=== PATIENT | female | born 1990 | race Caucasian/White ===

== ENCOUNTER 2017-07-11 23:50 | Observation (INO) | payer SELFPAY ==
[~2017-07-11] VITALS: Ht 165.1 cm; Wt 105.2 kg
[2017-07-12 00:33] LABS: APPEARANCE,URINE CLOUDY (CLEAR); BILIRUBIN,URINE NEGATIVE (NEGATIVE); GLUCOSE, URINE (UA) NEGATIVE (NEGATIVE); KETONES,URINE NEGATIVE (NEGATIVE); LEUKOCYTE ESTERASE ,URINE LARGE (NEGATIVE); NITRATE,URINE NEGATIVE (NEGATIVE); OCCULT BLOOD,URINE NEGATIVE (NEGATIVE); PH,URINE 6.5 (5.0-8.0); PROTEIN,URINE NEGATIVE (NEGATIVE)
[2017-07-12 00:52] VITALS: BP 124/76
[2017-07-12 00:54] LABS: BACTERIA,URINE Few /HPF (None Seen); RBC,URINE 0-2 /HPF (0-2); SQUAMOUS EPITHELIAL CELL,UR Few /LPF (None Seen)
== END 2017-07-12 01:05 | disposition home or self-care (01) ==
LOC: 4S 23:50
PROVIDERS: ADMIT Obstetrics & Gynecology; ATTEND Obstetrics & Gynecology
DX: O62.9 Abnormality of forces of labor, unspecified (principal); O48.0 Post-term pregnancy; O26.893 Other specified pregnancy related conditions, third trimester; R10.9 Unspecified abdominal pain; Z3A.41 41 weeks gestation of pregnancy
CPT/HCPCS: 59025; 80307 ×8; 81001; 87077; 87086; G0378 ×2

== ENCOUNTER 2017-07-23 06:32 | Inpatient (IN) | payer SELFPAY ==
[~2017-07-23] VITALS: Ht 165.1 cm; Wt 106.1 kg
[2017-08-19 00:16] VITALS: BP 136/76
[2017-08-19] MEDS ORDERED: RINGERS SOLUTION,LACTATED 1,000 ML IV SCH ×2 (01:12→02:37)
[2017-08-19] MEDS ORDERED: RINGERS SOLUTION,LACTATED 1,000 ML IV ONE (01:15)
[2017-08-19] MEDS ORDERED: RINGERS SOLUTION,LACTATED 1,000 ML IV PRN (02:37)
[2017-08-19] MEDS ORDERED: OXYTOCIN 30 UNITS/LACT RINGERS 500 ML IV ONE (02:37)
[2017-08-19] MEDS ORDERED: METHYLERGONOVINE MALEATE 0.2 MG/ML VIAL IM PRN (02:45)
[2017-08-19] MEDS ORDERED: CITRIC ACID/SODIUM CITRATE 30 ML SOLUTION UDCUP PO PRN (02:45)
[2017-08-19] MEDS ORDERED: METOCLOPRAMIDE HCL 5 MG/ML 2 ML VIAL IVP PRN (02:45)
[2017-08-19] MEDS ORDERED: FentaNYL CITRATE-PF 100 MCG/2 ML VIAL IVP PRN (02:45)
[2017-08-19] MEDS ORDERED: AMPICILLIN SODIUM 2 GM/NS 100 ML IV ONE (03:00)
[2017-08-19 03:13] LABS: BASOPHILS % (AUTO) 0.3 % (0.0-2.0); EOSINOPHILS % (AUTO) 0.4 % (1.0-6.0); LYMPHOCYTES # (AUTO) 3.2 K/uL (1.0-4.8); MEAN CORPUSCULAR HEMOGLOBIN 20.9 pg (26.0-34.0); MEAN CORPUSCULAR VOLUME 68 fL (80-100); MONOCYTES # (AUTO) 0.4 K/uL (0.1-1.0); MONOCYTES % (AUTO) 3.7 % (2.0-9.0); NEUTROPHILS % (AUTO) 68.6 % (40.0-70.0); PLATELET COUNT (AUTO)-OB 249 K/uL (150-450); RED BLOOD CELL COUNT(AUTO) 3.84 MIL/uL (4.00-5.20); RED CELL DISTRIBUTION WIDTH 18.7 % (11.5-14.5)
[2017-08-19] MEDS ORDERED: INFLUENZA VIRUS VACCINE QVS 2017-18 (3YR+)/PF 60 MCG/0.5 ML SYRINGE IM ONE (04:00)
[2017-08-19] MEDS ORDERED: OXYTOCIN 30 UNITS/LACT RINGERS 500 ML IV PRN (05:00)
[2017-08-19 05:30] LABS: RUBELLA SCREEN (IGG) IMMUNE (IMMUNE)
[2017-08-19] MEDS: AMPICILLIN SODIUM 1 GM/NS 50 ML IV SCH ×2 (06:39→11:24)
[2017-08-19] MEDS ORDERED: FentaNYL CITRATE-PF 100 MCG/2 ML VIAL ONE (07:28)
[2017-08-19] MEDS ORDERED: ROPIVACAINE HCL 0.2% 100 ML ED ONE (07:28)
[2017-08-19] MEDS ORDERED: ROPIVACAINE HCL 0.2% ED PRN (08:55)
[2017-08-19] MEDS ORDERED: FENTANYL CITRATE ED PRN (08:55)
[2017-08-19] MEDS ORDERED: NALBUPHINE HCL 10 MG/ML VIAL IVP PRN ×2 (09:00)
[2017-08-19] MEDS ORDERED: DiphenhydrAMINE HCL 50 MG/ML VIAL IVP PRN (09:00)
[2017-08-19] MEDS ORDERED: PROMETHAZINE HCL 12.5 MG in SODIUM CHLORIDE 0.9% 50 ML IV PRN (09:00)
[2017-08-19] MEDS ORDERED: ONDANSETRON HCL 4 MG/2 ML VIAL IVP PRN (09:00)
[2017-08-19] MEDS ORDERED: OXYTOCIN 20 UNITS/LACT RINGERS 1,000 ML IV ONE (13:38)
[2017-08-19] MEDS ORDERED: ACETAMINOPHEN/CODEINE 300-30 MG TABLET PO PRN (14:45)
[2017-08-19] MEDS ORDERED: BENZOCAINE 20%/MENTHOL 56 GM SPRAY CANISTER TP PRN (14:45)
[2017-08-19] MEDS ORDERED: GLYCERIN/WITCH HAZEL LEAF 40 PADS JAR TP PRN (14:45)
[2017-08-19] MEDS ORDERED: MEASLES/MUMPS/RUBELLA VACCINE, LIVE 0.5 ML/VIAL SQ ONE (14:45)
[2017-08-19] MEDS ORDERED: OXYTOCIN 20 UNITS/LACT RINGERS 1,000 ML IV SCH (14:45)
[2017-08-19] MEDS ORDERED: LANOLIN 7 GM OINTMENT TP PRN (14:45)
[2017-08-19] MEDS ORDERED: SENNA/DOCUSATE SODIUM 187-50 MG TABLET PO PRN (14:45)
[2017-08-19] MEDS: IBUPROFEN 600 MG TABLET PO PRN (14:55)
[2017-08-19] MEDS: MAGNESIUM HYDROXIDE SUSPENSION 30 ML UDCUP PO PRN (20:25)
[2017-08-19] MEDS ORDERED: PHENYLEPHRINE HCL 10 MG/ML VIAL IVP ONE (22:05)
[2017-08-19] MEDS ORDERED: EPHEDrine SULFATE 50 MG/ML VIAL IM ONE (22:05)
[2017-08-20] MEDS: IBUPROFEN 600 MG TABLET PO PRN ×2 (00:05→07:39)
[2017-08-20 06:09] LABS: BASOPHILS % (AUTO) 0.3 % (0.0-2.0); MEAN CORPUSCULAR HEMOGLOBIN 21.5 pg (26.0-34.0)
[2017-08-20 07:44] LABS: EOSINOPHILS % (AUTO) 0.9 % (1.0-6.0); LYMPHOCYTES # (AUTO) 2.6 K/uL (1.0-4.8); MEAN CORPUSCULAR HGB CONC 31.7 G/dL (31.0-37.0); MEAN CORPUSCULAR VOLUME 68 fL (80-100); MONOCYTES # (AUTO) 0.6 K/uL (0.1-1.0); MONOCYTES % (AUTO) 6.5 % (2.0-9.0); NEUTROPHILS # (AUTO) 5.9 K/uL (1.8-7.7); NEUTROPHILS % (AUTO) 64.3 % (40.0-70.0); PLATELET COUNT (AUTO)-OB 191 K/uL (150-450); RED BLOOD CELL COUNT(AUTO) 2.95 MIL/uL (4.00-5.20)
[2017-08-20 08:00] LABS: HEMOGLOBIN 6.3 g/dL (12.0-16.0)
[2017-08-20] MEDS: MAGNESIUM HYDROXIDE SUSPENSION 30 ML UDCUP PO PRN (09:13)
[2017-08-20] MEDS ORDERED: IBUP-2071 PO (12:49)
[2017-08-20] MEDS ORDERED: FERR-89 PO (12:58)
== END 2017-08-20 13:40 | disposition home or self-care (01) | DRG 775 ==
LOC: OBSVTOIN 08-18 23:00 → 4S 08-18 23:00
PROVIDERS: ADMIT Obstetrics & Gynecology; ATTEND Obstetrics & Gynecology
PROC: 10E0XZZ Delivery of Products of Conception, External Approach (ICD-10-PCS; principal; 2017-08-19)
PROC: 0UQGXZZ Repair Vagina, External Approach (ICD-10-PCS; 2017-08-19)
PROC: 3E0R3BZ Introduction of Anesthetic Agent into Spinal Canal, Percutaneous Approach (ICD-10-PCS; 2017-08-19)
PROC: 00HU33Z Insertion of Infusion Device into Spinal Canal, Percutaneous Approach (ICD-10-PCS; 2017-08-19)
DX: O71.4 Obstetric high vaginal laceration alone (principal); Z37.0 Single live birth; Z3A.38 38 weeks gestation of pregnancy
CPT/HCPCS: 76815; 80307; 86592; 86762; 86850; 86900; 86901; 87340; 90471; J0290; J2370; J2590; J2795; J3010; J3490; J7120

== ENCOUNTER 2019-06-03 16:10 | Inpatient (IN) | payer MEDICAID ==
[~2019-06-03] VITALS: Ht 165.1 cm; Wt 107.5 kg
[~2019-06-03 16:10] MED LIST: FERR-89 PO; IBUP-2071 PO
[2019-06-03] MEDS ORDERED: RINGERS SOLUTION,LACTATED 1,000 ML IV PRN (16:18)
[2019-06-03] MEDS ORDERED: OXYTOCIN 30 UNITS/LACT RINGERS 500 ML IV PRN (16:18)
[2019-06-03] MEDS ORDERED: OXYTOCIN 30 UNITS/LACT RINGERS 500 ML IV ONE ×2 (16:18→18:00)
[2019-06-03] MEDS: RINGERS SOLUTION,LACTATED 1,000 ML IV SCH ×2 (16:18→19:32)
[2019-06-03 16:28] VITALS: BP 112/59
[2019-06-03] MEDS ORDERED: CARBOPROST TROMETHAMINE 250 MCG/ML AMP IM PRN (16:30)
[2019-06-03] MEDS ORDERED: METOCLOPRAMIDE HCL 5 MG/ML 2 ML VIAL IVP PRN (16:30)
[2019-06-03] MEDS ORDERED: CITRIC ACID/SODIUM CITRATE 30 ML SOLUTION UDCUP PO PRN (16:30)
[2019-06-03] MEDS ORDERED: METHYLERGONOVINE MALEATE 0.2 MG/ML VIAL IM PRN ×2 (16:30→17:15)
[2019-06-03] MEDS ORDERED: FentaNYL CITRATE-PF 100 MCG/2 ML VIAL IVP PRN (16:30)
[2019-06-03] MEDS ORDERED: AMPICILLIN SODIUM 2 GM/NS 100 ML IV ONE (16:30)
[2019-06-03 17:10] LABS: BASOPHILS % (AUTO) 0.2 % (0.0-2.0); EOSINOPHILS % (AUTO) 0.4 % (1.0-6.0); HEMATOCRIT 22.1 % (36-46); LYMPHOCYTES # (AUTO) 1.9 K/uL (1.0-4.8); MEAN CORPUSCULAR HEMOGLOBIN 19.7 pg (26.0-34.0); MEAN CORPUSCULAR HGB CONC 30.5 G/dL (31.0-37.0); MEAN CORPUSCULAR VOLUME 65 fL (80-100); MONOCYTES # (AUTO) 0.4 K/uL (0.1-1.0); MONOCYTES % (AUTO) 3.9 % (2.0-9.0); NEUTROPHILS # (AUTO) 8.8 K/uL (1.8-7.7); NEUTROPHILS % (AUTO) 78.5 % (40.0-70.0); PLATELET COUNT (AUTO)-OB 298 K/uL (150-450); RED BLOOD CELL COUNT(AUTO) 3.41 MIL/uL (4.00-5.20)
[2019-06-03 17:13] LABS: HEMOGLOBIN 6.7 g/dL (12.0-16.0)
[2019-06-03] MEDS ORDERED: DiphenhydrAMINE HCL 25 MG CAPSULE PO ONE (17:15)
[2019-06-03] MEDS ORDERED: FUROSEMIDE 40 MG/4 ML VIAL IVP ONE ×2 (17:15)
[2019-06-03] MEDS ORDERED: FUROSEMIDE 20 MG/2 ML VIAL IVP ONE ×2 (17:15)
[2019-06-03] MEDS ORDERED: ACETAMINOPHEN 325 MG TABLET PO ONE (17:15)
[2019-06-03] MEDS ORDERED: DiphenhydrAMINE HCL 50 MG/ML VIAL IVP ONE (17:15)
[2019-06-03 17:21] LABS: ALANINE AMINOTRANSFERASE 13 U/L (12-78); ALBUMIN 2.5 g/dL (3.4-5.0); ALKALINE PHOSPHATASE 193 U/L (46-116); ANION GAP 11 mmol/L (8-16); ASPARTATE AMINOTRANSFERASE 11 U/L (15-37); BILIRUBIN,TOTAL 0.3 mg/dL (0.1-1.0); CALCIUM, TOTAL 7.8 mg/dL (8.8-10.5); CARBON DIOXIDE 20 mmol/L (22-29); CHLORIDE 105 mmol/L (98-107); CREATININE 0.83 mg/dL (0.60-1.30); GLOMERULAR FILTR. RATE CALC > 60 mL/min (>60); GLUCOSE,RANDOM 87 mg/dL (70-110); POTASSIUM 3.9 mmol/L (3.5-5.1); SODIUM SERUM 136 mmol/L (136-145); TOTAL PROTEIN, SERUM 7.4 g/dL (6.4-8.2); UREA NITROGEN, BLOOD 10 mg/dL (7-18)
[2019-06-03] MEDS ORDERED: BENZOCAINE 20%/MENTHOL 56 GM SPRAY CANISTER TP PRN (18:00)
[2019-06-03] MEDS ORDERED: GLYCERIN/WITCH HAZEL LEAF 40 PADS JAR TP PRN (18:00)
[2019-06-03] MEDS ORDERED: LIDOCAINE/PF 1% 30 ML VIAL INJ PRN (18:00)
[2019-06-03] MEDS ORDERED: LANOLIN 7 GM OINTMENT TP PRN (18:00)
[2019-06-03] MEDS: OxyCODONE HCL/ACETAMINOPHEN 5-325 MG TABLET PO PRN (19:17)
[2019-06-03] MEDS: SOD FERRIC GLUC COMPLX/SUCROSE 125 MG in SODIUM CHLORIDE 0.9% 100 ML IV SCH (19:31)
[2019-06-03] MEDS ORDERED: OXYGEN THERAPY IH SCH (20:00)
[2019-06-03] MEDS ORDERED: AMPICILLIN SODIUM 1 GM/NS 50 ML IV SCH (20:30)
[2019-06-04 00:04] LABS: RUBELLA SCREEN (IGG) IMMUNE (IMMUNE)
[2019-06-04] MEDS: IBUPROFEN 800 MG TABLET PO PRN (00:35)
[2019-06-04 05:53] LABS: BASOPHILS % (AUTO) 0.3 % (0.0-2.0); EOSINOPHILS % (AUTO) 0.4 % (1.0-6.0); LYMPHOCYTES # (AUTO) 2.3 K/uL (1.0-4.8); LYMPHOCYTES % (AUTO) 19.7 % (22.0-44.0); MEAN CORPUSCULAR HEMOGLOBIN 19.7 pg (26.0-34.0); MEAN CORPUSCULAR HGB CONC 30.3 G/dL (31.0-37.0); MEAN CORPUSCULAR VOLUME 65 fL (80-100); MONOCYTES # (AUTO) 0.7 K/uL (0.1-1.0); MONOCYTES % (AUTO) 6.3 % (2.0-9.0); NEUTROPHILS # (AUTO) 8.6 K/uL (1.8-7.7); NEUTROPHILS % (AUTO) 73.3 % (40.0-70.0); PLATELET COUNT (AUTO)-OB 227 K/uL (150-450); RED BLOOD CELL COUNT(AUTO) 2.71 MIL/uL (4.00-5.20); RED CELL DISTRIBUTION WIDTH 19.9 % (11.5-14.5)
[2019-06-04 06:25] LABS: HEMATOCRIT 17.6 % (36-46); HEMOGLOBIN 5.3 g/dL (12.0-16.0)
[2019-06-04] MEDS: OxyCODONE HCL/ACETAMINOPHEN 5-325 MG TABLET PO PRN ×3 (08:06→18:45)
[2019-06-04] MEDS ORDERED: DiphenhydrAMINE HCL 50 MG/ML VIAL IVP PRN (08:45)
[2019-06-04] MEDS ORDERED: SODIUM CHLORIDE 0.9% 1,000 ML ONE (10:25)
[2019-06-04] MEDS ORDERED: SODIUM CHLORIDE 0.9% 1,000 ML IV ONE (10:30)
[2019-06-04] MEDS: RINGERS SOLUTION,LACTATED 1,000 ML IV SCH (16:24)
[2019-06-04] MEDS: SOD FERRIC GLUC COMPLX/SUCROSE 125 MG in SODIUM CHLORIDE 0.9% 100 ML IV SCH (19:42)
[2019-06-04 20:26] LABS: BASOPHILS % (AUTO) 0.3 % (0.0-2.0); EOSINOPHILS % (AUTO) 1.7 % (1.0-6.0); LYMPHOCYTES # (AUTO) 2.4 K/uL (1.0-4.8); LYMPHOCYTES % (AUTO) 24.5 % (22.0-44.0); MEAN CORPUSCULAR HEMOGLOBIN 21.3 pg (26.0-34.0); MEAN CORPUSCULAR HGB CONC 31.3 G/dL (31.0-37.0); MEAN CORPUSCULAR VOLUME 68 fL (80-100); MONOCYTES # (AUTO) 0.6 K/uL (0.1-1.0); MONOCYTES % (AUTO) 5.5 % (2.0-9.0); NEUTROPHILS # (AUTO) 6.8 K/uL (1.8-7.7); PLATELET COUNT (AUTO)-OB 231 K/uL (150-450); RED BLOOD CELL COUNT(AUTO) 2.97 MIL/uL (4.00-5.20); RED CELL DISTRIBUTION WIDTH 23.3 % (11.5-14.5)
[2019-06-04 20:29] LABS: HEMOGLOBIN 6.3 g/dL (12.0-16.0)
[2019-06-04 20:30] LABS: HEMATOCRIT 20.2 % (36-46)
[2019-06-04] MEDS ORDERED: INFLUENZA VIRUS VACCINE QVS 2019-20 (3YR+)/PF 60 MCG/0.5 ML SYRINGE IM ONE (20:30)
[2019-06-04] MEDS: MAGNESIUM HYDROXIDE SUSPENSION 30 ML UDCUP PO PRN (21:02)
[2019-06-05] MEDS: OxyCODONE HCL/ACETAMINOPHEN 5-325 MG TABLET PO PRN ×2 (04:43→08:44)
[2019-06-05 05:53] LABS: BASOPHILS % (AUTO) 0.4 % (0.0-2.0); LYMPHOCYTES # (AUTO) 2.3 K/uL (1.0-4.8); LYMPHOCYTES % (AUTO) 23.1 % (22.0-44.0); MEAN CORPUSCULAR HEMOGLOBIN 21.7 pg (26.0-34.0); MEAN CORPUSCULAR HGB CONC 31.9 G/dL (31.0-37.0); MEAN CORPUSCULAR VOLUME 68 fL (80-100); MONOCYTES # (AUTO) 0.5 K/uL (0.1-1.0); MONOCYTES % (AUTO) 4.6 % (2.0-9.0); NEUTROPHILS # (AUTO) 6.9 K/uL (1.8-7.7); NEUTROPHILS % (AUTO) 69.9 % (40.0-70.0); PLATELET COUNT (AUTO)-OB 228 K/uL (150-450); RED BLOOD CELL COUNT(AUTO) 3.03 MIL/uL (4.00-5.20); RED CELL DISTRIBUTION WIDTH 22.8 % (11.5-14.5)
[2019-06-05 06:07] LABS: HEMATOCRIT 20.6 % (36-46); HEMOGLOBIN 6.6 g/dL (12.0-16.0)
[2019-06-05] MEDS: IBUPROFEN 800 MG TABLET PO PRN (10:08)
[2019-06-05] MEDS: MAGNESIUM HYDROXIDE SUSPENSION 30 ML UDCUP PO PRN (15:04)
[2019-06-05] MEDS ORDERED: IBUP-2070 PO (17:26)
[2019-06-05] MEDS ORDERED: DOCU-275 PO (17:28)
[2019-06-05] MEDS ORDERED: FERR-89 PO (17:29)
[2019-06-05] MEDS ORDERED: ACET-2247 PO (17:33)
== END 2019-06-05 18:10 | disposition home or self-care (01) | DRG 807 ==
LOC: OBSVTOIN 16:10 → 4S 16:10
PROVIDERS: ADMIT Obstetrics & Gynecology; ATTEND Obstetrics & Gynecology
PROC: 10E0XZZ Delivery of Products of Conception, External Approach (ICD-10-PCS; principal; 2019-06-03)
DX: O69.81X0 Labor and delivery complicated by cord around neck, without compression, not applicable or unspecified (principal); Z37.0 Single live birth; Z3A.38 38 weeks gestation of pregnancy
CPT/HCPCS: 80307; 86592; 86762; 86850; 86900; 86901; 86920; 87340; 88307; 90686; J0290; J1200; J2210; J2590; J2916; J3010; J7030; J7050; J7120; P9016